=== PATIENT | male | born 1940 | race Caucasian/White ===

== ENCOUNTER → 2017-03-16 | Outpatient (CLI) | payer MEDICARE, BC ==
[~2017-03-16] MED LIST: ASPIRIN PO; CRESTOR PO; MUSCLE RELAXER; NORCO 5/325 TAB1 TAB PO; PATIENT'S PHARMACY; PHYSCIAN; PROTONIX PO; ZESTORETIC 20/21 TAB PO; [UNRECOGNIZED DRUG - OTHER] PO
--- NOTE | ~2017-03-16 | US10 ---
[id number] [facility] [address] [place], [place] [address] [id number] O MR#: [id number] Acc #: [id number] NAME: REECE FRANKLIN : 1940 SEX: M STUDY DATE/TIME: 03/16/2017 9:49 UNIT: [facility]US ROOM: STUDY DESCRIPTION: US Aorta Complete Attending Physician: Gabino Noriega Jr., M.D. Referring Physician: Gabino Noriega Jr., M.D. Ordering Physician: Gabino Noriega Jr., M.D. Primary Care Physician: Gabino Noriega Jr., M.D. MEDICAL IMAGING REPORT This report is preliminary unless electronic signature is present EXAM Aortic ultrasound HISTORY Aortic aneurysm which was identified on a CT which was performed May 26, 2013. At that time the aorta measured up to 2.4 cm. TECHNIQUE Nava-scale, color Doppler and spectral Doppler waveform analysis was performed through the patient's aorta. FINDINGS Proximal abdominal aorta measures within normal size limits at 2.2 x 2.1 cm. Mid abdominal aorta measures 2.0 x 1.6 cm. Distal abdominal aorta does show aneurysmal dilatation measuring up to 2.2 x 2.1 cm. On one image the field liability generalist measures the aorta up to 2.8 cm. I am uncertain as to the accuracy of this measurement based upon caliper placement. The patient does have atherosclerotic plaque within the abdominal aorta. Common iliac arteries are of normal caliber. 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 On two images the field liability generalist measures it up to 2.8 cm, although I am not convinced of the accuracy of that measurement. I think probably there has not been significant interval change in the size of the aorta when compared to May 2013. Dictated by... Verenice Lazcano M.D. THIS IS AN ELECTRONICALLY VERIFIED REPORT Verenice Lazcano M.D. at 03/16/2017 4:12 PM LINDA/lee TD: 03/16/2017 14:23 JOB #: [id number] MEDICAL IMAGING REPORT Page 1 of 1 COPY
== END | disposition home or self-care (01) ==
LOC: CGUS 09:09
DX: Z13.6 Encounter for screening for cardiovascular disorders (principal); I71.4 Abdominal aortic aneurysm, without rupture; Z87.891 Personal history of nicotine dependence
CPT/HCPCS: 76770